=== PATIENT | male | born 1950 | race Caucasian/White ===

== ENCOUNTER → 2022-09-16 | Outpatient (CLI) | payer OTHER | END | disposition home or self-care (01) | LOC: OIH 14:21 | PROVIDERS: ATTEND Internal Medicine | DX: R52 Pain, unspecified (principal) | CPT/HCPCS: 71046 ==

== ENCOUNTER 2023-05-16 08:21 | Emergency (ER) | payer OTHER ==
[~2023-05-16] VITALS: Ht 172.7 cm; Wt 108.9 kg
[2023-05-16 08:24] VITALS: BP 134/84; PULSE 89; RESP 18
[2023-05-16 09:02] LABS: HEMATOCRIT 43.2 % (42-54); MEAN CORPUSCULAR HEMOGLOBIN 31.6 pg (27.0-33.0); MEAN CORPUSCULAR HGB CONC 34.5 g/dL (32.0-36.0); MEAN CORPUSCULAR VOLUME 91.7 fL (79-99); RED BLOOD CELL COUNT(AUTO) 4.71 MIL/uL (4.50-6.20); RED CELL DISTRIBUTION WIDTH 12.8 % (11.0-15.5); WHITE BLOOD COUNT (AUTO) 10.2 K/uL (4.8-10.8)
[2023-05-16 09:15] LABS: ALBUMIN 3.5 g/dL (3.5-5.0); BILIRUBIN,TOTAL 0.4 mg/dL (0.2-1.0); CREATININE 1.2 mg/dL (0.5-1.5); POTASSIUM 3.5 mmol/L (3.5-5.1); TOTAL PROTEIN, SERUM 7.3 g/dL (6.0-8.3)
[2023-05-16 09:38] LABS: INFLUENZA TYPE A Negative For Type A (NEGATIVE); INFLUENZA TYPE B Negative For Type B (NEGATIVE)
[2023-05-16 09:46] LABS: ADD UA MICROSCOPIC YES; APPEARANCE,URINE CLOUDY (CLEAR); BACTERIA,URINE FEW /HPF (None Seen); BILIRUBIN,URINE NEGATIVE (NEGATIVE); CALCIUM OXALATE CRYSTALS,UR MANY /LPF (None Seen); COLOR,URINE YELLOW (YELLOW); GLUCOSE, URINE (UA) NEGATIVE (NEGATIVE); KETONES,URINE NEGATIVE (NEGATIVE); LEUKOCYTE ESTERASE ,URINE NEGATIVE Leu/uL (NEGATIVE); MUCUS,URINE MANY LPF (None Seen); NITRATE,URINE NEGATIVE (NEGATIVE); OCCULT BLOOD,URINE LARGE (NEGATIVE); PROTEIN,URINE 70 mg/dL (NEGATIVE); RBC,URINE TNTC /HPF (0-1); UROBILINOGEN,URINE 3 mg/dL (0.2-1.0); WBC CLUMP FEW /HPF (0-1); WBC,URINE 26-50 /HPF (0-1)
[2023-05-16] MEDS ORDERED: PHEN-847 PO (10:43)
[2023-05-16] MEDS ORDERED: SULF1TAB42 PO (10:43)
[2023-05-16] MEDS ORDERED: TAMS-1 PO (10:43)
[2023-05-16 10:56] LABS: RAPID GROUP A STREP positive (NEGATIVE); SARS-CoV-2, RNA, NAAT NEGATIVE SARS CoV-2 (NEGATIVE)
[2023-05-16] MEDS ORDERED: AMOX1TAB16 PO (10:57)
== END 2023-05-16 10:49 | disposition home or self-care (01) ==
LOC: EDH 08:21
DX: N39.0 Urinary tract infection, site not specified (principal); J02.0 Streptococcal pharyngitis; I10 Essential (primary) hypertension; E78.00 Pure hypercholesterolemia, unspecified; Z20.822 Contact with and (suspected) exposure to COVID-19; Z79.899 Other long term (current) drug therapy; Z98.890 Other specified postprocedural states
CPT/HCPCS: 36415; 80053; 81001; 85027; 87088; 87635; 87804; 87880

== ENCOUNTER 2023-05-19 00:16 | Emergency (ER) | payer OTHER ==
[~2023-05-19] VITALS: Ht 174 cm; Wt 108.9 kg
[~2023-05-19 00:16] MED LIST: AMOX1TAB16 PO; PHEN-847 PO; TAMS-1 PO
[2023-05-19] MEDS ORDERED: 0.9%NACL 1000ML 1,000 ML IV ONE ×2 (00:30→01:00)
[2023-05-19] MEDS ORDERED: ONDANSETRON 4MG INJ IVP ONE (00:30)
[2023-05-19 00:34] LABS: BASOPHILS # (AUTO) 0.07 K/uL (0.00-0.20); BASOPHILS % (AUTO) 0.8 % (0.0-5.0); EOSINOPHILS # (AUTO) 0.27 K/uL (0.00-0.70); EOSINOPHILS % (AUTO) 3.1 % (0.0-8.0); HEMATOCRIT 42.9 % (42-54); IMMATURE GRANULOCYTE ABSOLUTE 0.04 K/uL (0-1); LYMPHOCYTES # (AUTO) 1.7 K/uL (1.0-4.8); LYMPHOCYTES % (AUTO) 19.7 % (21.0-51.0); MEAN CORPUSCULAR HEMOGLOBIN 32.4 pg (27.0-33.0); MEAN CORPUSCULAR HGB CONC 34.7 g/dL (32.0-36.0); MEAN CORPUSCULAR VOLUME 93.3 fL (79-99); MONOCYTES # (AUTO) 0.8 K/uL (0.1-1.0); MONOCYTES % (AUTO) 8.9 % (3.0-13.0); NEUTROPHILS # (AUTO) 5.9 K/uL (1.8-7.7); PLATELET COUNT (AUTO) 231 K/uL (130-400); WHITE BLOOD COUNT (AUTO) 8.8 K/uL (4.8-10.8)
[2023-05-19 00:50] LABS: APPEARANCE,URINE CLEAR (CLEAR); BILIRUBIN,URINE 2 mg/dL (NEGATIVE); GLUCOSE, URINE (UA) NEGATIVE (NEGATIVE); KETONES,URINE NEGATIVE (NEGATIVE); LEUKOCYTE ESTERASE ,URINE NEGATIVE Leu/uL (NEGATIVE); NITRATE,URINE 2+ (NEGATIVE); OCCULT BLOOD,URINE LARGE (NEGATIVE); PH,URINE 5.5 (5.0-8.0); PROTEIN,URINE 30 mg/dL (NEGATIVE); UROBILINOGEN,URINE >=8.0 mg/dL (0.2-1.0)
[2023-05-19 00:53] LABS: ADD UA MICROSCOPIC YES; COLOR,URINE AMBER (YELLOW)
[2023-05-19] MEDS ORDERED: KETOROLAC 30MG VIAL (30MG/ML) IVP ONE (01:00)
[2023-05-19] MEDS ORDERED: FAMOTIDINE 20MG VIAL IV ONE (01:00)
[2023-05-19] MEDS ORDERED: METOCLOPRAMIDE 10 MG/2 ML VIAL IVP ONE (01:00)
[2023-05-19 01:09] LABS: BACTERIA,URINE None Seen /HPF (None Seen); WBC,URINE 0-1 /HPF (0-1)
[2023-05-19 01:10] LABS: CALCIUM OXALATE CRYSTALS,UR Few /LPF (None Seen); SQUAMOUS EPITHELIAL CELL,UR None Seen /HPF (0-2)
[2023-05-19 01:17] LABS: CREATININE 1.3 mg/dL (0.5-1.5); POTASSIUM 3.6 mmol/L (3.5-5.1)
[2023-05-19 01:20] VITALS: BP 135/75; PULSE 78; RESP 18; O2SAT 99
[2023-05-19 01:22] LABS: ALBUMIN 3.2 g/dL (3.5-5.0); BILIRUBIN,TOTAL 0.2 mg/dL (0.2-1.0); TOTAL PROTEIN, SERUM 6.9 g/dL (6.0-8.3)
[2023-05-19] MEDS ORDERED: TAMSULOSIN HCL 0.4 MG CAP.ER.24H PO ONE (01:30)
[2023-05-19] MEDS ORDERED: METO-296 PO (01:32)
[2023-05-19] MEDS ORDERED: FAMO-136 PO (01:32)
[2023-05-19] MEDS ORDERED: TAMS-1 PO (01:32)
[2023-05-19] MEDS ORDERED: ACET-2079 PO (01:32)
== END 2023-05-19 02:23 | disposition admitted as inpatient to this hospital (09) ==
LOC: EDH 00:16
DX: N13.2 Hydronephrosis with renal and ureteral calculous obstruction (principal); I10 Essential (primary) hypertension; E03.9 Hypothyroidism, unspecified; E78.00 Pure hypercholesterolemia, unspecified
CPT/HCPCS: 99285; 74176; 96374; 96375; 96361; 80053; 83690; 85025; 81001; 36415; J3490; J7030; J1885; J2765

== ENCOUNTER → 2024-12-21 | Outpatient (CLI) | payer OTHER ==
[~2024-12-21] MED LIST changes: +ACET-2079 PO; +FAMO-136 PO; +METO-296 PO; -TAMS-1 PO; +TAMS-55 PO
--- NOTE | 2024-12-21 23:26 | HMCIMG ---
EXAM: CR Right Knee, 3 views. CLINICAL HISTORY: Pain. COMPARISON: None provided. FINDINGS: Mild tricompartmental osteoarthritic changes, more prominent in the medial tibiofemoral joint compartment. Small enthesophyte at the site of the attachment of the quadriceps tendon on the superior aspect of the patella. No acute fracture or aggressively appearing osseous lesion. There is no joint effusion appreciated. The soft tissues are unremarkable. IMPRESSION: No acute osseous abnormality. Mild tricompartmental osteoarthritic changes, more prominent in the medial tibiofemoral joint compartment. Small enthesophyte at the site of the attachment of the quadriceps tendon on the superior aspect of the patella. /Gibson
== END | disposition home or self-care (01) ==
LOC: RAH 13:56
PROVIDERS: ATTEND Physician Assistant
DX: M17.11 Unilateral primary osteoarthritis, right knee (principal); M76.51 Patellar tendinitis, right knee; M25.561 Pain in right knee
CPT/HCPCS: 73562

== ENCOUNTER → 2025-01-07 | Outpatient (CLI) | payer OTHER ==
[2025-01-07] VITALS: PULSE 60; RESP 18
[2025-01-07 22:47] VITALS: PULSE 62; RESP 22
[2025-01-07 23:30] VITALS: PULSE 58; RESP 18
[2025-01-08] VITALS (12 sets, daily range): PULSE 52–60; RESP 6–18
== END | disposition home or self-care (01) ==
LOC: SLP 20:35
PROVIDERS: ATTEND Internal Medicine
DX: G47.33 Obstructive sleep apnea (adult) (pediatric) (principal); R06.83 Snoring; I10 Essential (primary) hypertension; G47.51 Confusional arousals; N52.9 Male erectile dysfunction, unspecified; E66.9 Obesity, unspecified; R35.0 Frequency of micturition; R53.83 Other fatigue
CPT/HCPCS: 95811

== ENCOUNTER → 2025-03-24 | Outpatient (CLI) | payer OTHER ==
--- NOTE | 2025-03-24 21:05 | HMCIMG ---
STUDY: X-RAY OF THE TEMPOROMANDIBULAR JOINTS, 4 VIEWS HISTORY: Jaw pain. TECHNIQUE: Multiple views of the bilateral temporomandibular joints are submitted for interpretation. COMPARISON: None provided. FINDINGS: Bones and joints: Degenerative changes are present in both temporomandibular joints characterized by reduction of the joint spaces, subchondral sclerosis, and subchondral cystic change. No acute fracture, dislocation, or aggressive osseous lesion is identified. Soft tissues: Visualized adjacent soft tissues are unremarkable within the limits of radiography. 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 * In the setting of persistent jaw pain and degenerative changes, MRI of the temporomandibular joints is suggested for further evaluation of the articular discs and internal derangement. /Jerome
== END | disposition home or self-care (01) ==
LOC: RAH 16:19
PROVIDERS: ATTEND Internal Medicine
DX: M27.49 Other cysts of jaw (principal); R68.84 Jaw pain; M19.09 Primary osteoarthritis, other specified site
CPT/HCPCS: 70330